=== PATIENT | male | born 1950 | race Two or more races ===

== ENCOUNTER 2016-07-16 09:25 | Emergency (ER) | payer OTHER ==
[2016-07-16] MEDS ORDERED: HYDROMORPHONE HCL 1 MG/ML CPJ IM ONE (09:57)
--- NOTE | 2016-07-16 10:04 | Emergency Department Record ---
History of Present Illness - General Chief complaint: Swelling of legs Stated complaint: CELLULITIS OF LEFT ANKLE Time Seen by Provider: 07/16/16 09:50 Source: Patient, Family Mode of Arrival: Ambulatory Limitations: No limitations - History of Present Illness Initial comments: 66 yo male presents with concern about cellulitis of foot and ankle. He has had gradual worsening of the symptoms for 2 weeks. He has redness, warmth and swelling. He had similar symptoms this summer but the redness and swelling went up to the knee. No fever. No NVD. No injury. He has a remote history gout. No surgical history of the ankle. PCP is Dr Meeks. He has an appointment tomorrow. MD Complaint: Extremity swelling Onset/Timin -: Days(s) Location: Left, Ankle, Foot, Lower Leg History of Same: Yes Radiation: Distal Severity scale (1-10): 8 Quality: Aching Consistency: Constant Improves with: Nothing Worsens with: Nothing Associated Symptoms: Fever, Other - Related Data Home Medications Medication Instructions Recorded Confirmed Last Taken Celecoxib 100 mg PO DAILY 01/29/16 07/16/16 07/15/16 Pravastatin Sodium 20 mg PO 1200 01/29/16 07/16/16 07/15/16 Esomeprazole Magnesium [Nexium 20 mg PO DAILY 07/16/16 07/16/16 Unknown 24Hr] Previous Rx's Medication Instructions Recorded Clindamycin HCl [Cleocin HCl] 300 mg PO QID #40 capsule 07/16/16 Hydrocodone/Acetaminophen [[place] 1 tab PO Q6H PRN #20 tab 07/16/16 7.5mg/325mg] Allergies Allergy/AdvReac Type Severity Reaction Status Date / Time No Known Drug Allergies Allergy Verified 07/16/16 09:42 Travel Screening - Travel/Exposure Within Last 30 Days Have you traveled within the last 30 days?: No Review of Systems Constitutional: Denies: Chills, Fever, Malaise, Night sweats, Weakness Eyes: Denies: Eye discharge, Eye pain, Photophobia, Vision change ENT: Denies: Congestion, Throat pain Respiratory: Denies: Cough, Dyspnea, Hemoptysis, Stridor, Wheezes Cardiovascular: Denies: Chest pain, Palpitations, Syncope Endocrine: Denies: Fatigue Gastrointestinal: Denies: Abdominal pain, Diarrhea, Nausea, Vomiting Genitourinary: Denies: Dysuria, Frequency, Hematuria Musculoskeletal: Reports: Arthralgia, Gout, Joint swelling, Myalgia. Denies: Back pain, Neck pain Skin: Reports: As per HPI, Change in color. Denies: Bruising Neurological: Denies: Headache Psychiatric: Denies: Anxiety Hematological/Lymphatic: Denies: Blood Clots, Easy bleeding, Easy bruising, Swollen glands Past Medical History - SOCIAL HISTORY Smoking Status: Former smoker Alcohol Use: Heavy Drug Use: None - RESPIRATORY Hx Respiratory Disorders: No - CARDIOVASCULAR Hx Cardio Disorders: Yes Comment:: high cholesterol - NEURO Hx Neuro Disorders: No - GI Hx GI Disorders: Yes Hx Reflux: Yes - Hx Genitourinary Disorders: No - ENDOCRINE Hx Endocrine Disorders: No - MUSCULOSKELETAL Hx Musculoskeletal Disorders: No - PSYCH Hx Psych Problems: Yes Hx Anxiety: Yes Hx Depression: Yes - HEMATOLOGY/ONCOLOGY Hx Hematology/Oncology Disorders: Yes Hx Cancer: Yes (prostate) Family Medical History Any Significant Family History?: Yes Hx Cancer: Brother/Sister Hx Diabetes: Father, Brother/Sister Physical Exam - General General Appearance: Alert, Oriented x3, Cooperative, No acute distress Limitations: No limitations - Head Head exam: Atraumatic, Normal inspection - Eye Eye exam: Normal appearance, PERRL. negative: Conjunctival injection, Periorbital swelling - ENT ENT exam: Normal exam, Mucous membranes moist Ear exam: Normal external inspection Nasal Exam: Normal inspection Mouth exam: Normal external inspection Teeth exam: Normal inspection Throat exam: Normal inspection - Neck Neck exam: Normal inspection, Full ROM. negative: Tenderness - Respiratory Respiratory exam: Normal lung sounds bilaterally. negative: Respiratory distress - Cardiovascular Cardiovascular Exam: Regular rate, Normal rhythm, Normal heart sounds - GI/Abdominal GI/Abdominal exam: Soft. negative: Tenderness - Rectal Rectal exam: Deferred - exam: Deferred - Extremities Extremities exam: Joint swelling, Normal capillary refill, Tenderness. negative : Normal inspection, Calf tenderness, Full ROM, Pedal edema Image of Feet: 1 - Mild swelling, mild warmth and mild erythema from the ankle to the toes. No focal area is worse than another. Intact skin. Brisk cap refill. Sole is normal inspection. - Back Back exam: Reports: Normal inspection, Full ROM. Denies: Muscle spasm, Rash noted, Tenderness - Neurological Neurological exam: Alert, Normal gait, Oriented X3. negative: Altered - Psychiatric Psychiatric exam: Normal affect, Normal mood. negative: Anxious - Skin Skin exam: Erythema Course Vital Signs 07/16/16 09:36 Temperature 98.3 F Pulse Rate 100 H Respiratory 20 Rate Blood Pressure 145/93 Pulse Ox 96 - Reevaluation(s) Reevaluation #1: EMR reviewed from prior admission for cellulitis. 07/16/16 10:04 Reevaluation #2: The labs were reviewed WBC 13.7 and CRP 8.7 XR pending Uric Acid 5 07/16/16 10:48 Reevaluation #3: The results were reviewed with the patient We discussed DC given he has 8am follow up tomorrow He will be sent home with analgesic and antibiotics and crutches 07/16/16 11:17 Medical Decision Making - Lab Data Result diagrams: 07/16/16 10:07 07/16/16 10:07 Disposition Disposition: Discharge Clinical Impression: Cellulitis Disposition: Home, Self-Care Condition: (1) Good Instructions: Cellulitis (ED) Additional Instructions: Follow up with Dr Meeks tomorrow at 8am as scheduled Elevate and no weight bearing Return if suddenly worse or new concerns Prescriptions: Clindamycin HCl [Cleocin HCl] 300 mg PO QID #40 capsule Hydrocodone/Acetaminophen [[place] 7.5mg/325mg] 1 tab PO Q6H PRN #20 tab PRN Reason: Pain - General Forms: Patient Portal Access Time of Disposition: 11:20
[2016-07-16 10:15] LABS: HEMATOCRIT 37.4 % (42.0-52.0); HEMOGLOBIN 13.2 gm/dl (14.0-18.0); MEAN CORPUSCULAR HEMOGLOBIN 30.3 pg (27-33); MEAN CORPUSCULAR HGB CONC 35.3 g/dl (32-36); MEAN PLATELET VOLUME 9.8 fl (7.4-10.4); PLATELET COUNT 293 K/uL (130-400); RED BLOOD COUNT 4.35 M/uL (4.40-5.70); RED CELL DISTRIBUTION WIDTH 13.5 % (11.5-14.5); WHITE BLOOD COUNT W/O DIFF 13.7 K/uL (4.2-12.2)
[2016-07-16] MEDS: ONDANSETRON HCL IV 4 MG/2 ML VIAL IVP ONE (10:16)
[2016-07-16] MEDS: HYDROMORPHONE HCL 1 MG/ML CPJ IVP ONE (10:16)
[2016-07-16] MEDS: CLINDAMYCIN 600MG/50ML PREMIX 600 MG in DEXTROSE 1 BAG IV ONE (10:16)
[2016-07-16 10:23] LABS: PLATELET ESTIMATE NORMAL (NORMAL)
[2016-07-16 10:27] LABS: BLOOD UREA NITROGEN 9 mg/dL (9-20); CREATININE 0.8 mg/dL (0.66-1.25); EST GLOMERULAR FILTRATION RATE > 60 ml/min; GLUCOSE,RANDOM 177 mg/dL (70-110)
[2016-07-16] MEDS: DEXAMETHASONE 4 MG/ML 1ML VIAL IV ONE (10:27)
[2016-07-16 10:31] LABS: C-REACTIVE PROTEIN 8.7 mg/dL (0.0-0.9)
--- NOTE | 2016-07-19 14:59 | RADIOLOGY REPORT ---
DATE: 07/16/2016. EXAM: LEFT ANKLE. HISTORY: Cellulitis, pain. TECHNIQUE: Three views of the left ankle were performed. COMPARISON: 01/29/2016. ENCOUNTER: Initial. FINDINGS: No fracture or acute osseus abnormality. Tiny, chronic calcific density near the tip of the fibula unchanged. There is a plantar calcaneal spur. The ankle mortis appears intact. There is no destructive or erosive change seen. IMPRESSION: 1. NO FRACTURE OR ACUTE OSSEUS ABNORMALITY. 2. SMALL PLANTAR CALCANEAL SPUR UNCHANGED. 3. TINY CHRONIC CALCIFICATION NEAR THE TIP OF THE FIBULA UNCHANGED; POSSIBLY DUE TO OLD INJURY OR DEVELOPMENTAL VARIATION. JOB NUMBER: [id number] MTDD
== END 2016-07-16 11:37 | disposition home or self-care (01) ==
LOC: ER 09:25
DX: L03.116 Cellulitis of left lower limb (principal)
CPT/HCPCS: 99284 ×2; 96365; 96375; 84550; 85651; 86140; 80048; 85027; 73610; J2405; J1170